=== PATIENT | female | born 1970 | race Caucasian/White ===

== ENCOUNTER 2016-11-09 16:43 | Emergency (ER) | payer MEDICAID ==
[~2016-11-09] VITALS: Wt 81.0 kg
[2016-11-09] MEDS ORDERED: DIPHTH/TET/ACEL PERTUSS (ADULT) 0.5 ML VIAL IM* ONE (17:30)
[2016-11-09] MEDS ORDERED: LIDOCAINE 1% (MDV) 20 ML INJ SC ONE (17:30)
[2016-11-09] MEDS ORDERED: HYDROCODONE/APAP (5/325) TAB PO ONE (17:30)
--- NOTE | 2016-11-09 18:28 | ERD ---
ER Documentation Chief Complaint Date/Time DATE: 11/09/16 TIME: 1710 Chief Complaint LAC TO R THIGH HPI 46 y/o female presents to ED for laceration to right anterior thigh. Patient stated that a chainsaw machine fell on her right anterior thigh. Pain was described as sharp, dull, achy nonradiating with a pain rate of 7/10. Denies headache, head injury, loss of consciousness, dizziness, blurry vision, changes in vision, photophobia, facial pain, ear pain, throat pain, difficulty swallowing, neck pain, shoulder pain, chest pain, cough, hemoptysis, abdominal pain, back pain, loss of appetite, nausea, vomiting, hematochezia, diarrhea, constipation, urinary symptoms, , the possibility of being , bladder and bowel incontinences, numbness or tingling sensation, difficulty walking, recent travel, recent exposure to illness, recent antibiotic use in the last 3 months, fever, chills. Allergy: NKA PMH: Denies Family medical history: Denies O LMP:10/28/2016 Medications: Denies Surgery: 3 Primary Social History: Does not work at this time. Denies smoking, use of alcohol, use of illegal drugs. ROS All systems reviewed and are negative except as per history of present illness. Medications Home Meds Active Scripts Hydrocodone/Acetaminophen ([place] 5-325 Tablet) 1 Each Tablet, 1 TAB PO Q6H Y for PAIN, #7 TAB Prov:JERRY MCDOWELL F 11/09/16 Cephalexin* (Keflex*) 500 Mg Capsule, 500 MG PO QID for 7 Days, CAP Prov:PASILABAN,KLAR F 11/09/16 Allergies Allergies: Coded Allergies: No Known Allergies (Verified Allergy, Unknown, 11/09/16) PMhx/Soc Denies Medical and Surgical Hx: pt denies Medical Hx, pt denies Surgical Hx Hx Alcohol Use: No Hx Substance Use: No Smoking Status: Never smoker FmHx Denies Physical Exam Vitals Vital Signs Date Time Temp Pulse Resp B/P Pulse Ox O2 Delivery O2 Flow Rate FiO2 11/09/16 16:46 98.0 78 18 182/71 99 Physical Exam CONSTITUTIONAL: Well-appearing; well-nourished; in no apparent distress. HEAD: Normocephalic; atraumatic. EYES: Conjunctiva clear, sclera non-icteric, EOM intact. PERRL Ears: Hearing intact. EACs clear, TMs non-bulging, non-inflamed, translucent & mobile, ossicles normal appearance, No obstructions, no erythema, no discharges Nose: No obstructions. No polyps. No external lesions. Mucosa non-inflamed. No external lesions, septum and turbinates normal. No rhinorrhea. No discharges. Frontal sinus is non-tender to palpation. Maxillary sinus is non-tender to palpation. MOUTH: Moist mucous membranes, no lesion, no obstructions, no vesicles, no thrush, patent airway Throat: Uvula in midline. Right tonsil is +1 with no erythema, no exudate. Left tonsil is +1 with no erythema, no exudate. Tolerating secretions well. Good gag reflex. Patent airway. Neck: Supple, without lesions, bruits, or adenopathy. No mass. Thyroid non- enlarged and non-tender to palpation. CHEST: Symmetrical chest. Respirations even and not labored. No retractions noted. CARDIOVASCULAR: Normal S1, S2. RRR. No murmurs, gallops. RESPIRATORY: Normal chest excursion with respiration; breath sounds clear and equal bilaterally; no wheezes, rhonchi, or rales. Breathing even and unlabored. Speaking in clear, full, and complete sentences w/ ease. ABDOMEN: Normal bowel sounds normal. Soft, round, non-distended, non-guarding, no tenderness, no rebound, no organomegaly, no masses, no pulsating abdominal mass. No hernia. No peritoneal signs. : No CVA tenderness. BACK: Symmetrical shoulder. Spine is midline without deformity, tenderness. No evidence of trauma or deformity. PELVIS: Stable pelvis. No evidence of trauma or deformity. MUSCULOSKELETAL: Normal gait and station. No misalignment, asymmetry, crepitation, defects, tenderness, masses, effusions, decreased range of motion, instability, atrophy or abnormal strength or tone in the head, neck, spine, ribs , pelvis or extremities. No calf tenderness. NEUROVASCULAR: Distal pulses are present. Pedal pulse are present, equal, and normal. Capillary refills are < 2 seconds. NEUROLOGIC: Alert and oriented x4. Speaks full and clear sentences. Cranial Nerves II-XII normal. Sensation to pain, touch, and proprioception normal. Grossly unremarkable. No neurologic deficits. Romberg test is negative. PSYCHOLOGICAL: The patients mood and manner are appropriate. No hallucinations , delusions. Not SI. Not HI. Has the capacity to decide for self SKIN: Normal for age and ethnicity; warm; dry; good turgor; no apparent lesions or exudates. No rashes, hives, discoloration. Laceration to right anterior thigh with approximately 5 cm in length. Bleeding controlled at this time. Tendons in both bones are not visualized. No foreign bodies found. Results 24 hrs Current Medications Medications (Trade) Dose Ordered Sig/Matthew Route PRN Reason Start Time Stop Time Status Last Admin Dose Admin Diphtheria/ Tetanus/Acell Pertussis (Adacel) 0.5 ml ONCE ONCE IM* 11/09/16 17:30 11/09/16 17:32 DC 11/09/16 17:36 Lidocaine (Xylocaine 1% (Mdv) 20 ml) 20 ml ONCE ONCE SC 11/09/16 17:30 11/09/16 17:32 DC Acetaminophen/ Hydrocodone Bitart ([place] (5/325)) 1 tab ONCE ONCE PO 11/09/16 17:30 11/09/16 17:32 DC 11/09/16 17:36 Procedures/MDM Examination: Unremarkable examination except Laceration to right anterior thigh with approximately 5 cm in length. Bleeding controlled at this time. Tendons in both bones are not visualized. No foreign bodies found. Disease process, medical treatment was explained to the patient and family member. They verbalized understanding and agreed with the diagnostic tests, medical treatment, and follow-up care. Radiology: X-ray of the femur revealed no fractures; no abnormality; no foreign bodies. Case and medical management was discussed with Dr. Grover Grissom. He agreed with the medical management, treatment, follow-up care. Treatment: Tdap. [place]. Laceration repair: Laceration site was cleansed thoroughly with Betadine and saline. Pressure flushing done. No foreign bodies found. Tendons, ligaments, veins are not visualized. Lidocaine 1% 9 cc subcutaneous around the laceration. Ethilon 4-0 was used to suture the laceration. Total of 8 sutures done. No active bleeding. Applied bacitracin ointment covered with dry dressing. Circulation and sensation is intact. No neurovascular deficits. Re-evaluation: Consultation: None Differential diagnosis: Fracture versus foreign body versus laceration Medical decision makin46 y/o female presents to ED for laceration to right anterior thigh. Patient stated that a chainsaw machine fell on her right anterior thigh. Pain was described as sharp, dull, achy nonradiating with a pain rate of 7/10. Medications prescribed are the following: Keflex, [place] Patient and family member are made aware of the side effects and adverse reactions of the medications prescribed. Instructed on when to seek emergent and medical attention in case allergic/anaphylactic reactions or severe side effects and or adverse reactions to medications. Patient and family member verbalized understanding. Patient instructed Instructed to follow-up with his PCP in 24-48 hours. Come back here in the emergency department in 2 days for a wound check. Also instructed to come back here in the emergency department or go to her primary care physician with in 7- 10 days for a suture removal. Instructed to Call 911 for chest pain, shortness of breath. Advised to come back here in ED as soon as possible for severity of symptoms which includes but not limited to: any new symptoms; shortness of breath/difficulty of breathing; cardiovascular changes; severe gastrointestinal symptoms; signs and symptoms of bleeding and or infection; signs of compartment syndrome/neurovascular changes; neurological changes/deficits. Patient and family member verbalized understanding. Upon discharge, patient is alert and oriented x 4, speaks full and clear sentences, denies pain, has no neurological deficits, has no neurovascular deficits, difficulty of breathing. Breathing even and unlabored. Lung sounds are clear to auscultation. Not in distress. Appears comfortable. Ambulatory with steady gait. Appears satisfied with care provided here in ED. Departure Condition: Good Additional Instructions: Patient was instructed to: Instructed to follow-up with his PCP in 24-48 hours. Come back here in the emergency department in 2 days for a wound check. Also instructed to come back here in the emergency department or go to her primary care physician with in 7- 10 days for a suture removal. Instructed to Call 911 for chest pain, shortness of breath. Advised to come back here in ED as soon as possible for severity of symptoms which includes but not limited to: any new symptoms; shortness of breath/difficulty of breathing; cardiovascular changes; severe gastrointestinal symptoms; signs and symptoms of bleeding and or infection; signs of compartment syndrome/neurovascular changes; neurological changes/deficits. Patient and family member verbalized understanding. JERRY MCDOWELL Nov 09, 2016 18:28
--- NOTE | 2016-11-09 19:03 | RADRPT ---
PROCEDURE: XR Femur. CLINICAL INDICATION: Pain. Skin laceration TECHNIQUE: AP and lateral views of the left femur were obtained. COMPARISON: No prior studies are available for comparison. FINDINGS: There is normal mineralization and alignment. No fracture or osseous lesion is identified. There are normal joints without evidence of arthritis or effusion. The soft tissues are unremarkable. Artifac ts overlie the anterior soft tissues of the thigh. IMPRESSION: 1. Unremarkable left femur x-ray series. RPTAT: [facility] .Rhys Flowers MD, Date Time Electronically viewed and signed by .Rhys Flowers MD, on 11/09/2016 19:02 .L/
[2016-11-09] MEDS ORDERED: CEPH-443 PO (19:17)
[2016-11-09] MEDS ORDERED: HYDR-906 PO (19:18)
[2016-11-09 19:54] VITALS: BP 146/73; PULSE 76; RESP 18; TEMP 98.2
== END 2016-11-09 19:55 | disposition home or self-care (01) ==
LOC: FTE 16:43
DX: S71.111A Laceration without foreign body, right thigh, initial encounter (principal); W20.8XXA Other cause of strike by thrown, projected or falling object, initial encounter; Y92.9 Unspecified place or not applicable; Z72.0 Tobacco use
CPT/HCPCS: 12002; 73550; 90471; 90715; Z7502; Z7610

== ENCOUNTER 2016-11-19 09:52 | Emergency (ER) | payer MEDICAID ==
[~2016-11-19] VITALS: Ht 157.5 cm; Wt 78.0 kg
[~2016-11-19 09:52] MED LIST: CEPH-443 PO; HYDR-906 PO
[2016-11-19 09:54] VITALS: Ht 157.5 cm; Wt 78.0 kg
--- NOTE | 2016-11-19 11:29 | ERD ---
ER Documentation Chief Complaint Date/Time DATE: 11/19/16 TIME: 11:25 Chief Complaint RIGHT LEG SUTURFE REMOVAL HPI 46-year-old otherwise healthy female presents to the emergency department for a suture removal. Patient was seen this emergency department 10 days ago soon after she sustained a laceration to the right anterior thigh region. Patient was prescribed Keflex and states she has been compliant with antibiotic therapy regimen. Patient denies any fever, discharge, blood or drainage from laceration site. Patient states overall she has improved although she notes just mild dull pain surrounding the site of injury on her thigh. Patient received Tdap at last visit. ROS All systems reviewed and are negative except as per history of present illness. Medications Home Meds Active Scripts Hydrocodone/Acetaminophen ([place] 5-325 Tablet) 1 Each Tablet, 1 TAB PO Q6H Y for PAIN, #7 TAB Prov:JERRY MCDOWELL 11/09/16 Cephalexin* (Keflex*) 500 Mg Capsule, 500 MG PO QID for 7 Days, CAP Prov:MORGANCALVINYAHAIRAKVNG F 11/09/16 Allergies Allergies: Coded Allergies: No Known Allergies (Verified Allergy, Unknown, 11/09/16) PMhx/Soc Hx Alcohol Use: No Hx Substance Use: No Physical Exam Vitals Vital Signs Date Time Temp Pulse Resp B/P Pulse Ox O2 Delivery O2 Flow Rate FiO2 11/19/16 09:54 98.1 78 18 128/78 99 Physical Exam Const: Well-developed, nontoxic-appearing, in no distress Head: Atraumatic Eyes: Normal Conjunctiva ENT: Normal External Ears, Nose and Mouth. Neck: Full range of motion..~ No meningismus. Resp: Clear to auscultation bilaterally Cardio: Regular rate and rhythm, no murmurs Abd: Soft, non tender, non distended. Normal bowel sounds Skin: No petechiae or rashes Back: No midline or flank tenderness Ext: 4 cm well-healed laceration located on the right anterior thigh. 9 simple interrupted sutures intact. No evidence of bleeding or drainage from laceration site. No tenderness to palpation. Skin warm and dry. No cyanosis, erythema or edema Neur: Awake and alert Psych: Normal Mood and Affect Procedures/MDM Suture Removal by me: Sutures removed with tweezers and scissors without incident. 10 simple interrupted sutures removed from laceration site. Steri-Strips applied and instructions given. Patient to continue Motrin and Tylenol for pain. Wound shows no evidence of infection, foreign body, neurologic injury, vascular injury, open joint or tendon laceration. Patient to follow up PRN. Based on patient's history of present illness and physical examination the decision was made to discharge. The patient was re-evaluated after ED treatment and stabilizing measures, and symptoms have improved. There is no evidence of life threatening injuries or illnesses at this time. On re-examination, patient resting in no distress, stable vital signs, reports feeling better and safe for discharge with outpatient follow up with PMD in 1-2 days. Patient given return precautions. FARZAD MORENO PA-C Nov 19, 2016 11:29
[2016-11-19] MEDS ORDERED: IBUP-1542 PO (11:30)
[2016-11-19] MEDS ORDERED: BACITUD TOP (11:30)
== END 2016-11-19 12:05 | disposition home or self-care (01) ==
LOC: FTE 09:52
DX: Z48.02 Encounter for removal of sutures (principal)
CPT/HCPCS: 99283